=== PATIENT | male | born 1990 | race African-American/Black ===

== ENCOUNTER 2025-10-18 14:10 | Emergency (ER) | payer MEDICAID ==
[~2025-10-18] VITALS: Ht 167.6 cm; Wt 118.0 kg
[2025-10-18 14:14] VITALS: O2SAT 99
[2025-10-18 14:52] VITALS: BP 138/72; PULSE 70; RESP 18; TEMP 36.8; O2SAT 99
== END 2025-10-18 15:53 | disposition left against medical advice (07) ==
LOC: ER 14:10
DX: R51.9 Headache, unspecified (principal); Z53.21 Procedure and treatment not carried out due to patient leaving prior to being seen by health care provider
CPT/HCPCS: 99281